=== PATIENT | male | born 1945 | race Caucasian/White ===

== ENCOUNTER → 2017-01-16 | Outpatient (CLI) | payer MEDICARE, OTHER ==
[~2017-01-16] MED LIST: CEPH250 PO; DIOV320T PO; HYDR-3580 PO; IBUP-232 PO; IBUP800T23 PO; LORTA5 PO; OMEP20TA39 PO; RIVA10 PO; SIMV20TA PO; TRAZ100 PO; VIAG100T PO; ZOLO50TA PO
--- NOTE | 2017-01-17 12:04 | RADRPT ---
EXAM DATE/TIME: 01/16/2017 00:00 [place] COMPARISON: No previous studies available for comparison. INDICATIONS : Right renal mass. FINDINGS: Reviewed patient's MRI from [facility] date 12/20/2016. The lesion described on the inferior p ole of the right kidney was actually present on a prior scan of the abdomen and pelvis from 03/25/[address] [facility]. 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 No evidence of interval growth. CONCLUSION: Cryoablation and biopsy of the right renal lesion is not recommended. CT features are characteri stic of a benign angiomyolipoma with no interval growth. Norbert Flores MD on January 17, 2017 at 11:17 Board Certified Radiologist. This report was verified electronically.
== END ==
LOC: HRAD 11:49
PROVIDERS: ATTEND Urology
DX: N28.89 Other specified disorders of kidney and ureter (principal)